=== PATIENT | female | born 1950 | race Caucasian/White ===

== ENCOUNTER → 2016-04-05 | Outpatient (CLI) | payer OTHER ==
[2014-12-24 08:51] VITALS: BP 151/75
[~2016-04-05] MED LIST: ACET500T33 PO; ALPR0.5T PO; CELE200C PO; EPIN0.3A4 IJ; META800T21 PO
--- NOTE | 2016-04-05 14:27 | KCIC ---
Examination: Ultrasound kidneys HISTORY History of hematuria, flank pain. COMPARISON None available. Findings : The right kidney measures 10.0 x 6.0 x 5.6 centimeters. The left kidney measures 11.0 x 5.4 x 5.0 centimeters. No evidence of hydronephrosis.The urinary bladder is mildly distended. IMPRESSION Unremarkable visualized exam. Electronically signed by: Sage Hung (Apr 05, 2016 14:25:20)
== END | disposition home or self-care (01) ==
LOC: KCIC US 12:04
PROVIDERS: ATTEND Obstetrics & Gynecology Gynecology
DX: R31.9 Hematuria, unspecified (principal); N23 Unspecified renal colic
CPT/HCPCS: 76770

== ENCOUNTER → 2016-06-20 | Outpatient (CLI) | payer OTHER ==
[2014-12-24 08:51] VITALS: BP 151/75
--- NOTE | 2016-06-21 18:34 | SLEEP ---
DATE OF STUDY: 06/20/2016 REFERRING PHYSICIAN: Dr. Garcia. The patient is a 65-year-old who weighs 196 pounds with a BMI of 36. The patient's [place] score was 10. A split night study was performed at [facility]. During the night study, the patient spent 423 minutes in bed and slept for 328 minutes with a sleep efficiency of 78%. Sleep latency was 13 minutes with a REM latency of 92 minutes. Overall, sleep architecture showed normal stage I sleep, increased stage II sleep, normal slow wave and reduced REM sleep. During the initial diagnostic portion of the study, the patient slept for 247 minutes. During this time, there were 16 obstructive apneas, 5 mixed apneas and no central apneas. There were 46 hypopneas. The patient's apnea hypopnea index was 16 per hour, supine index 26 per hour with a REM index of 80 per hour. EKG monitoring revealed normal sinus rhythm. Occasional PVCs were seen. Average heart rate was 77 beats per minute. Review of nocturnal oximetry study revealed a mean oxygen saturation of 96% with lowest of 84%. 3.7% of time oxygen saturation remained between 80% and 89%. PLMS were seen at index of 34 per hour and 3 per hour caused EEG arousals. The patient met the criteria for CPAP initiation. It was started at 5 cm water and titrated up to 7 cm of water. At the final pressure, the patient slept for 60 minutes. The patient had supine sleep, but no REM sleep observed. AHI was 0 per hour and oxygen saturation remained above 93%. The patient used small size nasal pillows. IMPRESSION: 1. Moderate sleep apnea-hypopnea syndrome with worsening during REM sleep. Total AHI of 16 per hour with a REM AHI of 80 per hour. 2. Mild nocturnal hypoxia secondary to obstructive sleep apnea, but resolved with CPAP. 3. Moderate PLMS at an index of 34 per hour and 3 per hour caused EEG arousals. RECOMMENDATIONS: 1. CPAP at 7 cm water completely eliminated the patient's sleep apnea and should be used on a nightly basis. 2. Follow up in 4-6 weeks to assess compliance with CPAP and to document clinical improvement. 3. Weight loss is advised. 4. Avoid [employer] depressants. 5. Caution regarding driving until symptoms of sleep apnea resolve with the use of CPAP. 6. The patient should also be further evaluated for any symptoms of restless legs during the day. ATILIO JAEGER MD DR: TRAE/myrtle JOB#: [id number] / [id number] ZEUS Aparicio MD, SABATO MD
== END | disposition home or self-care (01) ==
LOC: SLPLAB 18:27
PROVIDERS: ATTEND Internal Medicine Pulmonary Disease
DX: G47.33 Obstructive sleep apnea (adult) (pediatric) (principal)
CPT/HCPCS: 95810

== ENCOUNTER → 2016-08-18 | Outpatient (CLI) | payer OTHER ==
[2014-12-24 08:51] VITALS: BP 151/75
[~2016-08-18] MED LIST changes: -EPIN0.3A4 IJ; +EPIPEN 2-P0.3 MG/0.3 IJ; +META-21 PO; -META800T21 PO
--- NOTE | 2016-08-18 13:21 | KCIC ---
THYROID ULTRASOUND History: Left thyroid nodule follow-up. Comparison: Thyroid ultrasound, May 20, 2015 and 11/20/2013. Technique: Multiple grayscale and color Doppler images of the thyroid gland were obtained. Findings: Right thyroid lobe measures 4 x 1.9 x 2.1 cm. There is a hypoechoic nodule in the mid right thyroid lobe measuring up to 7 mm, unchanged. The isthmus measures 4 mm. The left thyroid lobe measures 4 x 1.9 x 2.4 cm. Dominant predominantly cystic nodule with irregular septations measures 23 x 15 x 17 mm, most recently 18 x 12 x 13 mm. On thyroid ultrasound of 2013 the nodule measured 23 x 16 x 19 mm. IMPRESSION: Dominant cystic nodule of the mid left thyroid lobe has mildly increased in size from prior year ultrasound but is smaller than in 2014. General recommendations for nodules 1.0 cm or greater in largest diameter: Strongly consider FNA for: -A nodule 1.0 cm or more in largest diameter if microcalcifications are present. -A nodule 1.5 cm or more in largest diameter if the nodule is almost entirely solid or if coarse calcifications are present. -A nodule 2.0 cm or more in largest diameter if the nodule is mixed solid and cystic, or is almost entirely cystic with a solid mural nodule, or has had substantial growth since prior US studies. [employer] Ultrasound Consensus Conference Statement, January 2005, Volume 237, Issue 3 Electronically signed by: Jose Banks MD (08/18/2016 1:18 PM)
== END | disposition home or self-care (01) ==
LOC: KCIC US 10:10
PROVIDERS: ATTEND Internal Medicine Endocrinology, Diabetes & Metabolism
DX: E04.1 Nontoxic single thyroid nodule (principal)
CPT/HCPCS: 76536

== ENCOUNTER 2016-09-13 09:00 | Outpatient (CLI) | payer OTHER ==
[2014-12-24 08:51] VITALS: BP 151/75
--- NOTE | 2016-09-20 09:05 | RAD ---
DATE: 09/13/2016 EXAM: MAMMO LILO SCREENING BILATERAL HISTORY: Bilateral screening mammogram COMPARISON: Screening mammogram 12/04/2013 and 10/10/2012. The breast parenchyma shows scattered fibroglandular densities. Breast parenchyma level B. FINDINGS: No suspicious mass, calcification or architectural distortion. No significant change from prior examination. IMPRESSION: No mammographic evidence to suggest malignancy. BI-RADS 1, negative. Recommend routine screening mammogram in 12 months BI-RADS CATEGORY: 1 NEGATIVE RECOMMENDED FOLLOW-UP: 12M 12 MONTH FOLLOW-UP PQRS compliance statement: Patient information was entered into a reminder system with a target due date September 2017 for the next mammogram. Mammography is a sensitive method for finding small breast cancers, but it does not detect them all and is not a substitute for careful clinical examination. A negative mammogram does not negate a clinically suspicious finding and should not result in delay in biopsying a clinically suspicious abnormality. "Our facility is accredited by the [employer] Mammography Program."
== END 2016-09-13 12:00 | disposition home or self-care (01) ==
LOC: KCIC MAMMO 09:00
PROVIDERS: ATTEND Specialist
DX: Z12.31 Encounter for screening mammogram for malignant neoplasm of breast (principal)
CPT/HCPCS: 77063; G0202; 77067

== ENCOUNTER → 2017-05-18 | Outpatient (CLI) | payer OTHER | END | disposition home or self-care (01) | LOC: KCIC CT 09:38 | DX: M41.84 Other forms of scoliosis, thoracic region (principal); M47.894 Other spondylosis, thoracic region; I25.10 Atherosclerotic heart disease of native coronary artery without angina pectoris; R91.8 Other nonspecific abnormal finding of lung field | CPT/HCPCS: 71250 ==

== ENCOUNTER → 2017-05-18 | Outpatient (CLI) | payer OTHER | END | disposition home or self-care (01) | LOC: KCIC CT 09:32 | DX: R91.8 Other nonspecific abnormal finding of lung field (principal); Z82.49 Family history of ischemic heart disease and other diseases of the circulatory system | CPT/HCPCS: 75571 ==

== ENCOUNTER → 2017-08-31 | Outpatient (CLI) | payer OTHER | END | disposition home or self-care (01) | LOC: KCIC MAMMO 13:43 | DX: Z12.31 Encounter for screening mammogram for malignant neoplasm of breast (principal); E04.2 Nontoxic multinodular goiter; I25.10 Atherosclerotic heart disease of native coronary artery without angina pectoris; F32.9 Major depressive disorder, single episode, unspecified; F41.9 Anxiety disorder, unspecified | CPT/HCPCS: 76536; 77063; 77067 ==

== ENCOUNTER → 2017-10-10 | Outpatient (CLI) | payer OTHER ==
[2014-12-24 08:51] VITALS: BP 151/75
--- NOTE | 2017-10-10 09:51 | KCIC ---
MRI Lumbar Spine without contrast History: Low back pain, degenerative disc disease, left hip pain, previous surgery Technique: Multiplanar, multi sequential noncontrast MR imaging was performed of the lumbar spine. Contrast: None Comparison: February 05, 2013 Findings: There is some motion degradation. There is moderate levoscoliosis centered about L2-3. Lumbar vertebral body stature and AP alignment are maintained. Conus terminates at L1. There is mild L4-5 endplate edema and trace T12-L1 and L1-L2 endplate edema likely reactive/degenerative in etiology. There is variable fairly advanced degenerative disc disease L2-3 through L5-S1 and to a somewhat lesser degree at L1-L2, relatively progressed at L3-4 in the interval. L1-L2: There is disc osteophyte complex and protrusion more eccentric to the right lateral recess greater than previously, minimal narrowing of the far right lateral recess. There is mild buckling of the ligamentum flavum and facet hypertrophic change. Left neural foramen is adequate. There is mild to moderate narrowing greater distally of the right neural foramen, somewhat greater than previously. L2-L3: There is disc osteophyte complex somewhat greater than previously, mild narrowing of the far right lateral recess. There is supx-tv-[id number] buckling of the ligamentum flavum greater on the right, also facet degenerative change. Left neural foramen is adequate. There is again mild to moderate narrowing of the right neural foramen primarily from posteriorly. L3-L4: There is again moderate facet degenerative change and buckling of the ligamentum flavum somewhat greater on the right. There is minimal disc osteophyte complex greater in the inferior left neural foramen. Neural foramina are overall adequate. There is very mild narrowing of the far left lateral recess. L4-L5: There again has been left laminectomy. There is facet degenerative change. Spinal canal is adequate. There is minimal disc osteophyte complex. There is symf-ce-rqruzxds narrowing of the left neural foramen, right neural foramen adequate. L5-S1: There is a very shallow right paracentral protrusion. Spinal canal is adequate. There is left greater than right facet degenerative change. Right neural foramen is adequate, ctso-zp-jmujmign narrowing of the left neural foramen Impression: 1. There is again multilevel fairly advanced degenerative disc disease greatest L2-3 through L5-S1, some variable endplate edema greatest at L4-5 likely reactive/degenerative in etiology. There is moderate lumbar levoscoliosis. There is no new significant lumbar spinal stenosis, mild narrowing of the far left lateral recess at L5-3-4 and right lateral recess L1-2. There is multilevel [id number]-wc-[id number] neural foramina compromise such as on the left at L4-5 and L5-S1 and on the right at L1-L2 and L2-3. Electronically signed by: Oskar Interiano MD (10/10/2017 9:49 AM) [id number]
== END | disposition home or self-care (01) ==
LOC: KCIC MRI 08:55
PROVIDERS: ATTEND Orthopaedic Surgery
DX: M51.36 Other intervertebral disc degeneration, lumbar region (principal); M51.37 Other intervertebral disc degeneration, lumbosacral region; R60.9 Edema, unspecified; I25.10 Atherosclerotic heart disease of native coronary artery without angina pectoris; F41.9 Anxiety disorder, unspecified; F32.9 Major depressive disorder, single episode, unspecified; Z82.49 Family history of ischemic heart disease and other diseases of the circulatory system
CPT/HCPCS: 72148

== ENCOUNTER → 2018-08-14 | Outpatient (CLI) | payer OTHER ==
[2014-12-24 08:51] VITALS: BP 151/75
--- NOTE | 2018-08-14 17:34 | KCIC ---
CLINICAL HISTORY: Thyroid nodules, follow-up COMPARISON: 08/01/2017 TECHNIQUE: Ultrasound examination of the thyroid gland was performed FINDINGS: The right thyroid lobe measures 4.7 x 1.6 x 2.1 cm. The left thyroid measures 4.8 x 1.9 x 2 cm. The thyroid isthmus measures 0.2 cm in thickness. Multiple bilateral thyroid nodules are seen. A right upper pole thyroid nodule measures up to 0.8 cm, previously 0.7 cm. A right lower pole thyroid nodule measures 0.6 cm, previously 0.5 cm, essentially stable. A left upper pole septated cystic thyroid nodule 1.7 x 1.3 x 1.7 cm previously measured 2 x 1.1 x 1.6 cm. A 1 x 0.7 x 0.9 cm medial left interpolar solid thyroid nodule previously measured 0.9 x 0.4 x 0.8 cm. A 0.5 cm mixed solid and cystic left lower pole thyroid nodule previously measured 0.4 cm. There is no regional cervical lymphadenopathy. IMPRESSION: Multiple bilateral thyroid nodules are in general stable in size including the cystic left upper pole thyroid nodule with associated septations. However a single left interpolar thyroid nodule has mildly increased in size. Given the mild increase in size in the left interpolar thyroid nodule and the borderline features of the left upper pole thyroid nodule, follow-up thyroid ultrasound is recommended. Electronically signed by: Edward Gaona MD (08/14/2018 5:31 PM) [facility]
== END | disposition home or self-care (01) ==
LOC: KCIC US 13:41
PROVIDERS: ATTEND Internal Medicine Endocrinology, Diabetes & Metabolism
DX: E04.2 Nontoxic multinodular goiter (principal)
CPT/HCPCS: 76536

== ENCOUNTER → 2018-09-11 | Outpatient (CLI) | payer OTHER ==
[2014-12-24 08:51] VITALS: BP 151/75
--- NOTE | 2018-09-11 16:23 | KCIC ---
Bilateral digital screening mammograms with 3-D tomosynthesis: Reason for examination: Routine screening. Comparison is made to previous studies dated 08/31/2017 and 09/13/2016. Bilateral mammograms in CC and oblique projections were obtained with 2-D imaging and 3-D tomosynthesis imaging on a Siemens Inspiration unit and reviewed on the workstation. Interpretation was made with the benefit of CAD. The skin and nipples show no abnormalities. No abnormal axillary lymph nodes are seen. The breast parenchyma shows scattered fatty and fibroglandular density. (Breast density: Category B.) There are small nodular parenchymal densities seen bilaterally which are stable. There are no new dominant masses, suspicious calcifications or architectural distortion. Impression: No evidence of malignancy. Recommend routine screening. BI-RAD Category 2: Benign. "Our facility is accredited by the [employer] Mammography Program." This patient's information has been entered into a reminder system for the patient to be notified with the results of her examination and a target date for the next mammogram. Electronically signed by: Josey Galan MD (09/11/2018 4:20 PM) [id number]
== END | disposition home or self-care (01) ==
LOC: KCIC MAMMO 09:29
PROVIDERS: ATTEND Specialist
DX: Z12.31 Encounter for screening mammogram for malignant neoplasm of breast (principal)
CPT/HCPCS: 77063; 77067

== ENCOUNTER → 2018-10-30 | Outpatient (CLI) | payer OTHER ==
[2014-12-24 08:51] VITALS: BP 151/75
--- NOTE | 2018-10-30 08:52 | KCIC ---
EXAM: Left breast sonogram. HISTORY: 68-year-old female presents with left breast pain. The patient reports no focal palpable lump. TECHNIQUE: Sonographic imaging of the left breast at nearly all 4 quadrants and the retroareolar joint was performed. COMPARISON: Mammogram dated 09/11/2018. FINDINGS: There are ectatic ducts within the 9:00 position of the left breast. No intraductal mass is seen. There is a 4.9 mm suspected complicated cyst or benign fibrocystic lesion at the 1:00 position 8.5 cm from the nipple. There is a similar smaller complicated cystic or fibrocystic lesion at the 2:00 position 9 cm from the nipple measuring 2.7 mm. There is no suspicious sonographic lesion within the left breast. IMPRESSION: 1. Ectatic ducts within the 9:00 position of the left breast and suspected tiny benign complicated cysts or benign fibrocystic lesions at the 1:00 and 2:00 positions. There is no suspicious sonographic finding within the left breast. There is no suspicious mammographic finding on the recent mammogram dated 09/11/2018. 2. BI-RADS Category 2: Benign finding(s). Continued clinical follow-up of palpable abnormalities is recommended. The patient will be due for bilateral mammography in 10 months according to a previously established bilateral mammography interval. Electronically signed by: Monet Arroyo MD (10/30/2018 8:49 AM) [id number]
== END | disposition home or self-care (01) ==
LOC: KCIC US 07:49
PROVIDERS: ATTEND Obstetrics & Gynecology
DX: N60.42 Mammary duct ectasia of left breast (principal)
CPT/HCPCS: 76641

== ENCOUNTER → 2019-12-02 | Outpatient (CLI) | payer MEDICARE, OTHER ==
[2014-12-24 08:51] VITALS: BP 151/75
--- NOTE | 2019-12-02 14:02 | KCIC ---
Bilateral digital screening mammograms with 3-D tomosynthesis: Reason for examination: Routine screening. Comparison is made to previous studies dated back to 12/04/2013. Bilateral mammograms in CC and oblique projections were obtained with 2-D imaging and 3-D tomosynthesis imaging on a Siemens Inspiration unit and reviewed on the workstation. Interpretation was made with the benefit of CAD. The skin and nipples show no abnormalities. No abnormal axillary lymph nodes are seen. The breast parenchyma shows scattered fatty and fibroglandular density. (Breast density: Category B.) There continues to be a nodule consistent with intramammary lymph node at the 2:00 C position of the left breast. There is a small nodule at the 2:00 B position of the left breast which is unchanged. In the right breast, there is also a small nodule at the 6:00 B position which is stable. There are no new dominant masses, suspicious calcifications or architectural distortion. Impression: No evidence of malignancy. Recommend routine screening. BI-RAD Category 2: Benign. "Our facility is accredited by the [employer] Mammography Program." This patient's information has been entered into a reminder system for the patient to be notified with the results of her examination and a target date for the next mammogram. Electronically signed by: Josey Galan MD (12/02/2019 1:59 PM) [email or web address]
== END ==
LOC: KCIC MAMMO 10:30
PROVIDERS: ATTEND Obstetrics & Gynecology
DX: Z12.31 Encounter for screening mammogram for malignant neoplasm of breast (principal); N64.89 Other specified disorders of breast
CPT/HCPCS: 77063; 77067

== ENCOUNTER → 2020-08-28 | Outpatient (CLI) | payer MEDICARE ==
[2014-12-24 08:51] VITALS: BP 151/75
[~2020-08-28] MED LIST changes: +IOHEXOL 240 MG/ML 50ML VIAL. PO ONE; +IOHEXOL 300 MG/ML 100ML VIAL. IV ONE
--- NOTE | 2020-08-28 12:41 | KCIC ---
CT of the abdomen and pelvis with contrast 08/28/2020 12:32 PM Indication: Upper abdominal pain/discomfort 6 months. / Comparison study: CT of the abdomen and pelvis without contrast September 04, 2014 Technique: Multidetector CT imaging of the abdomen and pelvis was performed following the administrat ion of IV contrast. Findings: Linear opacities in the bilateral lung base discoid atelectasis. Partially calcified lung nodule righ t lower lobe is stable. There is a noncalcified nodule in the right middle lobe measuring 5 which is also unchanged consistent with benign nodule. There is a somewhat ill-defined hypodense nodule in the dome of the right liver measuring 8 mm in diameter (axial image 14). The appearance is nonspecific. Liver is otherwise unremarkable.. The adrenal glands and kidneys are unremarkable. The spleen is unre markable. The pancreas is mildly atrophic but otherwise unremarkable. There is no bowel obstruction. No evidence of acute inflammatory change involving the bowel is identified. Prominent diverticulosis involving the descending and sigmoid colon noted. There is no free fluid or free air seen in the abdo men or pelvis. Evaluation of the inferior pelvis is limited secondary to beam hardening artifact from right total hip arthroplasty. Visualized portions of the bladder demonstrate no gross abnormality. D egenerative changes and scoliotic changes of the lumbosacral spine noted. IMPRESSION: 1. 8mm are somewhat ill-defined hypodense lesion in the dome of the right liver, not previously ident ified on comparison exam. This may be due to the presence of contrast on today's study. The patient i s considered low risk, no further follow-up is required. If patient is considered high risk (known pr imary malignancy, cirrhosis, hepatitis, alcoholism, etc) 3-6 month follow-up hepatic protocol MRI rec ommended 2. Prominent diverticulosis involving the descending sigmoid colon without evidence of acute divertic ulitis CT DOSING PQRS STATEMENT: One or more of the following individualized dose reduction techniques were utilized for this examinat ion: 1. Automated exposure control 2. Adjustment of the mA and/or kV according to patient size 3. Use of iterative reconstruction technique Electronically signed by: Chase Matthew MD (08/28/2020 12:38 PM) [id number]
== END ==
LOC: KCIC CT 09:24
PROVIDERS: ATTEND Physician Assistant
DX: K57.30 Diverticulosis of large intestine without perforation or abscess without bleeding (principal); K86.89 Other specified diseases of pancreas; K76.9 Liver disease, unspecified; M47.817 Spondylosis without myelopathy or radiculopathy, lumbosacral region; J98.11 Atelectasis; R91.1 Solitary pulmonary nodule; M41.87 Other forms of scoliosis, lumbosacral region
CPT/HCPCS: 74177; 82565; Q9967

== ENCOUNTER → 2020-09-03 | Outpatient (CLI) | payer MEDICARE ==
[2014-12-24 08:51] VITALS: BP 151/75
[~2020-09-03] MED LIST changes: -IOHEXOL 240 MG/ML 50ML VIAL. PO ONE; -IOHEXOL 300 MG/ML 100ML VIAL. IV ONE
--- NOTE | 2020-09-04 08:40 | KCIC ---
US THYROID History: Thyroid nodule. Comparison: 08/14/2018, 08/31/2017 Technique: Multiple grayscale and color Doppler images of the thyroid gland were obtained. Findings: Right thyroid lobe: 5.1 x 2.5 x 2.2 cm. Left thyroid lobe: 5.4 x 2.0 x 2.3 cm. Isthmus: 0.4 cm. Thyroid gland is heterogeneous and multinodular. No significant hyperemia. Nodule #1. Maximum size: 1.0 cm; Other 2 dimensions 0.9 x 0.5 cm. Location: Left isthmus. Characteristics: Solid, heterogeneously hypoechoic, wider than tall, circumscribed, no echogenic focu s ACR TI-RADS risk category: TR4 (4-6 points): FNA if 1.5 cm, follow-up if 1-1.4 cm in 1, 2, 3, and 5 y ears. Significant change in size (>= 20% in two dimensions and minimal increase of 2 mm): No. Change in features: No. Change in ACR TI-RADS risk category: No. Nodule #2. Maximum size: 0.8 cm; Other 2 dimensions 0.7 x 0.5 cm. Location: Right upper. Characteristics: Solid, hypoechoic, wider than tall, ill-defined borders, no echogenic foci ACR TI-RADS risk category: TR4 (4-6 points): FNA if 1.5 cm, follow-up if 1-1.4 cm in 1, 2, 3, and 5 y ears. Significant change in size (>= 20% in two dimensions and minimal increase of 2 mm): No. Change in features: No. Change in ACR TI-RADS risk category: No. Nodule #3. Maximum size: 1.6 cm; Other 2 dimensions 1.2 x 1.0 cm. Location: Left outer upper. Characteristics: Solid and cystic, hypoechoic, circumscribed, no echogenic foci, wider than tall ACR TI-RADS risk category: TR3 (3 points): FNA if 2.5 cm, follow-up if 1.5-2.4 cm in 1, 3, and 5 year s. Significant change in size (>= 20% in two dimensions and minimal increase of 2 mm): No. Change in features: No. Change in ACR TI-RADS risk category: No. IMPRESSION: 1. Multinodular thyroid with relative two-year stability of moderately suspicious 1.0 cm left isthmi c nodule which had demonstrated increased size from [id number]. No biopsy indicated at this time. Williams mmend follow-up ultrasound in one year. ACR Thyroid Imaging, Reporting And Data System (TI-RADS): White Paper Of The ACR TI-RADS Committee. J ournal of the [employer], volume 14, issue 5, pages 587-595 (June 2016). Electronically signed by: Matt Dudley MD (09/04/2020 8:38 AM) [facility]
== END ==
LOC: KCIC US 14:51
PROVIDERS: ATTEND Internal Medicine Endocrinology, Diabetes & Metabolism
DX: E04.2 Nontoxic multinodular goiter (principal)
CPT/HCPCS: 76536

== ENCOUNTER → 2020-12-03 | Outpatient (CLI) | payer MEDICARE ==
[2014-12-24 08:51] VITALS: BP 151/75
--- NOTE | 2020-12-03 12:10 | KCIC ---
Bilateral screening mammogram dated 12/03/2020. INDICATION: 70 years of age asymptomatic female patient presents for screening mammography. Screening TECHNIQUE: Full field craniocaudal and mediolateral oblique images of both breasts were obtained usi ng digital technique with tomosynthesis and also analyzed with computer-aided detection software. . COMPARISON: 08/31/2017 09/13/2016. BREAST COMPOSITION: Category B: There are scattered fibroglandular densities. FINDINGS: No suspicious mass or clustered microcalcification. Parenchymal pattern is stable. There are benign-a ppearing calcifications. IMPRESSION: No mammographic evidence of malignancy. RECOMMENDATION: Annual screening mammography is recommended, unless clinically indicated sooner based on symptoms or change in physical exam. BIRADS 1: NEGATIVE This study was interpreted with the benefit of Computerized Aided Detection (CAD). Recommend routine screening exam in one year. Patient information is entered into the reminder system with a target due date for the next screening mammogram. Mammography is the most sensitive method for finding small breast cancers, but it does not detect the m all and is not a substitute for careful clinical examination. A negative mammogram does not negate a clinically suspicious finding and should not result in delay in biopsying a clinically suspicious a bnormality. "Our facility is accredited by the [employer] Mammography Program." Electronically signed by: Arnulfo Sun MD (12/03/2020 12:07 PM) [email or web address]
== END ==
LOC: KCIC MAMMO 10:54
PROVIDERS: ATTEND Obstetrics & Gynecology
DX: Z12.31 Encounter for screening mammogram for malignant neoplasm of breast (principal)
CPT/HCPCS: 77063; 77067